=== PATIENT | male | born 1970 | race Caucasian/White ===

== ENCOUNTER 2017-06-29 11:15 | Emergency (ER) | payer OTHER ==
[~2017-06-29] VITALS: Ht 172.7 cm; Wt 70.3 kg
[~2017-06-29 11:15] MED LIST: IBUPROFEN 800800 M1 PO; NORCO 5-325 TA1 EAC1 PO; ROBAXIN500 MG PO
[2017-06-29] MEDS ORDERED: ASPERCREME1 EACH TOP (11:42)
[2017-06-29] MEDS ORDERED: MORPHABOND ER15 MG PO (11:42)
[2017-06-29] MEDS ORDERED: FLEXERIL PO (11:42)
[2017-06-29 14:05] VITALS: BP 145/90
== END 2017-06-29 14:05 | disposition home or self-care (01) ==
LOC: M.ERS 11:15
DX: M79.605 Pain in left leg (principal)

== ENCOUNTER 2020-05-05 16:45 | Inpatient (IN) | payer MEDICARE ==
[~2020-05-05] VITALS: Ht 170.2 cm; Wt 74.0 kg
[~2020-05-05 16:45] MED LIST changes: +ASPERCREME1 EACH TOP; +FLEXERIL PO; +MORPHABOND ER15 MG PO
[2020-05-05 16:49] VITALS: BP 174/109
[2020-05-05] MEDS ORDERED: NEURONTIN300 MG PO (16:54)
[2020-05-05] MEDS ORDERED: LISINOPRIL-HCT1 EAC1 PO (16:54)
[2020-05-05 19:47] LABS: ABSOLUTE BASOPHILS 0.1 thou/uL (0.0-0.2); ABSOLUTE EOSINOPHILS 0.9 thou/uL (0.0-0.7); ABSOLUTE LYMPHOCYTES 3.1 thou/uL (0.8-5.3); ABSOLUTE MONOCYTES 0.7 thou/uL (0.0-1.2); ABSOLUTE NEUTROPHILS 5.6 thou/uL (1.6-8.1); BASOPHILS 1.3 %; EOSINOPHILS 8.9 %; HEMATOCRIT 33.8 % (42.0-52.0); HEMOGLOBIN 11.4 gm/dL (14.0-18.0); LYMPHOCYTES 29.6 %; MCH 26.6 pg (26.0-34.0); MCHC 33.8 g/dL (28.0-37.0); MCV 78.6 fL (80.0-100.0); MPV 7.3 fl. (7.2-11.1); NUCLEATED RBCS 0 /100WBC; PLATELET COUNT* 193 thou/uL (150-400); POLYS 53.2 %; RBC 4.31 mil/uL (4.50-6.00); RDW-CV 14.6 % (10.5-14.5); WBC 10.4 thou/uL (4.0-11.0)
[2020-05-05 20:00] LABS: CREATININE 3.9 mg/dL (0.6-1.3); POTASSIUM 4.3 mmol/L (3.5-5.1)
[2020-05-05 20:05] LABS: ALBUMIN 3.8 g/dL (3.4-5.0); TOTAL BILIRUBIN 0.3 mg/dL (<0.1-1.0); TOTAL PROTEIN 9.1 g/dL (6.4-8.2)
[2020-05-05 20:12] LABS: URINE BILIRUBIN NEGATIVE (Negative); URINE BLOOD TRACE (Negative); URINE CLARITY CLEAR; URINE COLOR YELLOW; URINE GLUCOSE-RANDOM NEGATIVE (Negative); URINE KETONES NEGATIVE (Negative); URINE LEUKOCYTES-REFLEX NEGATIVE (Negative); URINE NITRITE-REFLEX NEGATIVE (Negative); URINE PROTEIN NEGATIVE (Negative); URINE UROBILINOGEN 0.2 E.U./dl (0.2-1.0)
[2020-05-06] VITALS (7 sets, daily range): BP systolic 130–166; BP diastolic 71–97
[2020-05-06 09:33] LABS: CREATININE 3.6 mg/dL (0.6-1.3); POTASSIUM 4.4 mmol/L (3.5-5.1)
[2020-05-06 09:36] LABS: MAGNESIUM 2.2 mg/dL (1.8-2.4); PHOSPHORUS* 3.5 mg/dL (2.5-4.9)
--- NOTE | 2020-05-06 10:49 | EKG ---
[place] [address] ELECTROCARDIOGRAM REPORT Name: CAMELIA FAITH Room: [place] [address] ADM IN ..#: [id number] Admission: 05/05/20 Attend Phys: Jose Lai, Discharge: Date of : 70 Date of Service: 05/05/201957 Report #: [id number] THIS REPORT FOR: //name// [facility] ED Test Date: 2020-05-05 Test Time: 19:58:31 Pat Name: CAMELIA FAITH Department: Room: [facility] Gender: M Clinical Research Administrator: ALBERTO : 1970 Requested By: Sea Zhu Order Number: [id number] MD: Leoncio Le Measurements Intervals [place] Rate: 75 P: 32 FL: 189 QRS: 1 QRSD: 84 T: 6 QT: 373 QTc: 417 Interpretive Statements Sinus rhythm Probable septal infarct, old No previous ECG available for comparison Electronically Signed On 05-06-2020 10:49:23 CAR DUMPER OPERATOR HELPER by Leoncio Le [email or web address] <ELECTRONICALLY SIGNED> By: Leoncio Le MD, [facility] 05/06/20 1049 57 57 Leoncio Le MD, [facility] /EPI
[2020-05-06 11:36] LABS: % SATURATION 22 % (20-39); IRON 55 ug/dL (50-175)
--- NOTE | 2020-05-06 15:03 | 2DMMODE ---
[place] [address] 2 D/M-MODE ECHOCARDIOGRAM Name: MALVIN FAITHREE Perez Room: [place] [address] ADM IN M.R.#: [id number] Admission: 05/05/20 Attend Phys: Jose Lai, Discharge: Date of : 70 Date of Service: 05/06/20 1503 Report #: [id number] THIS REPORT FOR: cc: Sunil Collins MD, Ram MD Liston, Michael J. MD [facility] ~ APPROVED REPORT Study performed: 05/06/2020 14:14:52 EXAM: Comprehensive 2D, Doppler, and color-flow Echocardiogram Patient Location: Bedside BSA: 1.91 HR: 60 bpm BP: 144/87 mmHg Other Information Study Quality: Adequate Indications Chest Pain 2D Dimensions IVSd: 10.07 (7-11mm) LVOT Diam: 19.56 (18-24mm) LVDd: 42.58 mm PWd: 9.97 (7-11mm) Ascending Ao: 32.54 (22-36mm) LVDs: 31.08 (25-40mm) Aortic Root: 33.00 mm Volumes Left Atrial Volume (Systole) LA ESV Index: 16.20 mL/m2 Aortic Valve AoV Peak Jonah.: 1.19 m/s AO Peak Gr.: 5.62 mmHg LVOT Max P.07 mmHg AO Mean Gr.: 3.18 mmHg LVOT Mean P.89 mmHg LVOT Max V: 1.01 m/s AO V2 VTI: 21.53 cm LVOT Mean V: 0.62 m/s WILEY (VTI): 2.60 cm2 LVOT V1 VTI: 18.61 cm Mitral Valve E/A Ratio: 0.81 [place] [address] 2 D/M-MODE ECHOCARDIOGRAM Name: CAMELIA FAITH Room: [address] IN .R.#: [id number] Admission: 05/05/20 Attend Phys: Jose Lai, Discharge: Date of : 70 Date of Service: 05/06/20 1503 Report #: [id number] MV Decel. Time: 290.07 ms MV E Max Jonah.: 0.64 m/s MV PHT: 84.12 ms MVA (PHT): 2.62 cm2 TDI E/Lateral E': 4.00 E/Medial E': 8.00 Medial E' Jonah.: 0.08 m/s Lateral E' Jonah.: 0.16 m/s Pulmonary Valve PV Peak Jonah.: 1.13 m/s PV Peak Gr.: 5.14 mmHg Tricuspid Valve RAP Estimate: 5.00 mmHg TR Peak Gr.: 18.93 mmHg RVSP: 23.93 mmHg PA Pressure: 23.93 mmHg Left Ventricle The left ventricle is normal size. There is normal LV segmental wall motion. There is normal left ventricular wall thickness. Left ventricular systolic function is normal. LVEF is 60-65%. Grade I - abnormal relaxation pattern. Right Ventricle The right ventricle is normal size. The right ventricular systolic function is normal. Atria The left atrium size is normal. The right atrium size is normal. Aortic Valve The aortic valve is normal in structure. No aortic regurgitation is present. There is no aortic valvular stenosis. Mitral Valve The mitral valve is normal in structure. There is no mitral valve regurgitation noted. No evidence of mitral valve stenosis. Tricuspid Valve The tricuspid valve is normal in structure. Trace tricuspid regurgitation. Pulmonic Valve The pulmonary valve is normal in structure. [place] [address] 2 D/M-MODE ECHOCARDIOGRAM Name: CAMELIA FAITH Room: [address] IN [facility]#: [id number] Admission: 05/05/20 Attend Phys: Jose Lai, Discharge: Date of : 70 Date of Service: 05/06/20 1503 Report #: [id number] valvular regurgitation. Great Vessels The aortic root is normal in size. IVC is normal in size and collapses >50% with inspiration. Pericardium There is no pericardial effusion. <Conclusion> The left ventricle is normal size. There is normal left ventricular wall thickness. Left ventricular systolic function is normal. LVEF is 60-65%. Grade I - abnormal relaxation pattern. Trace tricuspid regurgitation. IVC is normal in size and collapses >50% with inspiration. <ELECTRONICALLY SIGNED> By: Raman Snyder MD, FACC 05/06/20 1503 1503 1503 Raman Snyder MD, FACC /INF
[2020-05-07 00:30] VITALS: BP 138/77
[2020-05-07 04:38] LABS: HEMATOCRIT 32.1 % (42.0-52.0); HEMOGLOBIN 10.7 gm/dL (14.0-18.0); MCH 26.5 pg (26.0-34.0); MCHC 33.5 g/dL (28.0-37.0); MCV 79.2 fL (80.0-100.0); MPV 7.5 fl. (7.2-11.1); RBC 4.05 mil/uL (4.50-6.00); RDW-CV 14.9 % (10.5-14.5); WBC 8.8 thou/uL (4.0-11.0)
[2020-05-07 05:34] LABS: CALCIUM 8.5 mg/dL (8.5-10.1); CREATININE 3.9 mg/dL (0.6-1.3); MAGNESIUM 2.4 mg/dL (1.8-2.4); POTASSIUM 4.8 mmol/L (3.5-5.1)
[2020-05-07 09:34] VITALS: BP 166/100
[2020-05-07 11:13] LABS: URINE POTASSIUM-RANDOM 24.6 mmol/L
[2020-05-07 20:00] VITALS: BP 162/99
[2020-05-07 22:36] LABS: SMEAR FOR EOSINOPHILS No Eosinophils Seen
[2020-05-08] VITALS: BP 161/96
[2020-05-08 03:06] LABS: HEPATITIS B SURFACE AG Negative (Negative)
[2020-05-08 04:41] LABS: CALCIUM 8.9 mg/dL (8.5-10.1); CREATININE 3.5 mg/dL (0.6-1.3); HEMATOCRIT 33.5 % (42.0-52.0); HEMOGLOBIN 11.3 gm/dL (14.0-18.0); MCH 26.1 pg (26.0-34.0); MCHC 33.8 g/dL (28.0-37.0); MCV 77.3 fL (80.0-100.0); MPV 7.7 fl. (7.2-11.1); POTASSIUM 4.3 mmol/L (3.5-5.1); RBC 4.33 mil/uL (4.50-6.00); WBC 12.6 thou/uL (4.0-11.0)
[2020-05-08 06:49] LABS: ALBUMIN 3.9 g/dL (3.4-5.0); CALCIUM 9.1 mg/dL (8.5-10.1); CREATININE 3.4 mg/dL (0.6-1.3); POTASSIUM 4.3 mmol/L (3.5-5.1); TOTAL BILIRUBIN 0.3 mg/dL (<0.1-1.0); TOTAL PROTEIN 8.5 g/dL (6.4-8.2)
[2020-05-08 08:00] VITALS: BP 177/103
[2020-05-08] MEDS ORDERED: NORVASC10 MG PO (09:08)
[2020-05-08] MEDS ORDERED: CATAPRES0.1 MG PO (09:08)
[2020-05-08 20:00] VITALS: BP 175/100
[2020-05-09 04:00] VITALS: BP 167/103
[2020-05-09 04:22] LABS: ALBUMIN 3.7 g/dL (3.4-5.0); CALCIUM 9.2 mg/dL (8.5-10.1); CREATININE 3.3 mg/dL (0.6-1.3); TOTAL BILIRUBIN 0.5 mg/dL (<0.1-1.0); TOTAL PROTEIN 8.3 g/dL (6.4-8.2)
[2020-05-09 08:00] VITALS: BP 151/98
--- NOTE | 2020-05-09 09:43 | CON ---
[address] [address] CONSULTATION Name: CAMELIA FAITH Ana Room: [address] IN .R.#: [id number] Admission: 05/05/20 Attend Phys: Jose Lai MD Discharge: Date of : 70 Report #: [id number] THIS REPORT FOR: //name// cc: Sunil Collins MD, Ram MD ~ DATE OF SERVICE: 05/08/2020 REQUESTING PHYSICIAN: Jose Lai MD REASON FOR CONSULTATION: Acute kidney injury. HISTORY OF PRESENT ILLNESS: The patient is a 49-year-old white male with medical history significant for hypertension. According to the patient his hypertension is well controlled. The patient presented to the hospital with complaints of chest pain. He does not have a history of coronary artery disease. It was found that his creatinine was 3.9 with a GFR of 17. According to the patient, his blood pressure always controlled well and again according to the patient his renal functions a year ago were normal. The patient was on IRVIN inhibitor prior to admission. We did a renal ultrasound here that revealed slightly smaller right kidney with a solitary left renal artery, which indicating probable a moderate left renal artery stenosis. SOCIAL HISTORY: Positive for marijuana use. FAMILY HISTORY: Negative for renal disease. REVIEW OF SYSTEMS: No complaints now and he wants to go home. PHYSICAL EXAMINATION: GENERAL: He is awake, alert, oriented. VITAL SIGNS: Blood pressure 177/103, heart rate 86, afebrile. HEENT: Pupils are round. NECK: Supple. LUNGS: Clear. CARDIOVASCULAR: Regular rate. EXTREMITIES: Lower extremities, right leg with some wounds, which is chronic wound. LABORATORY DATA: His urinalysis was unremarkable. His serum sodium 128, potassium 4.3, chloride 94, carbon dioxide 22, BUN 50, creatinine 3.5. Hemoglobin is 11.3. ASSESSMENT: 1. Acute kidney injury. Etiology is unclear[place] [address] CONSULTATION Name: CAMELIA FAITH Room: [address] IN [facility]#: [id number] Admission: 05/05/20 Attend Phys: Jose Lai MD Discharge: Date of : 70 Report #: [id number] 2. Hypertension, uncontrolled. 3. Chronic right leg infection. PLAN: Advised the patient to stay in the hospital and wait for the results of the serology. In light of the fact that according to the patient his blood pressure was controlled well that is all acute problems, although I cannot independently confirm it. The patient very strongly wants to go home and I explained to him that I cannot be responsible for his renal function if he just goes home, he understood that. Discussed the case with Dr. Lai. If the patient goes home, he will need to follow up with different nephrologists. I was thinking that I cannot follow with the patient who does not trust my judgment. <ELECTRONICALLY SIGNED> By: Vicetne Arciniega MD 05/09/20 0943 0916 [id number] Arciniega MD /[facility]
[2020-05-09 10:28] LABS: INR 1.4; PROTIME 14.2 Seconds (9.20-11.50)
[2020-05-09 16:01] VITALS: BP 142/82
[2020-05-09 18:06] LABS: ANA INTERPRETATION Negative (())
[2020-05-09 20:00] VITALS: BP 139/87
[2020-05-10] VITALS: BP 128/83
[2020-05-10 05:22] LABS: HEMATOCRIT 31.8 % (42.0-52.0); HEMOGLOBIN 10.9 gm/dL (14.0-18.0); MCH 26.5 pg (26.0-34.0); MCHC 34.3 g/dL (28.0-37.0); MCV 77.4 fL (80.0-100.0); MPV 7.6 fl. (7.2-11.1); NUCLEATED RBCS 0 /100WBC; PLATELET COUNT* 306 thou/uL (150-400); RBC 4.11 mil/uL (4.50-6.00); RDW-CV 14.8 % (10.5-14.5); WBC 8.4 thou/uL (4.0-11.0)
[2020-05-10 05:41] LABS: INR 1.2; PROTIME 12.4 Seconds (9.20-11.50)
[2020-05-10 05:45] LABS: ALBUMIN 3.5 g/dL (3.4-5.0); CALCIUM 8.6 mg/dL (8.5-10.1); CREATININE 3.7 mg/dL (0.6-1.3); TOTAL BILIRUBIN 0.2 mg/dL (<0.1-1.0); TOTAL PROTEIN 7.8 g/dL (6.4-8.2)
[2020-05-10 06:14] LABS: ABSOLUTE EOSINOPHILS 0.3 thou/uL (0.0-0.7); ABSOLUTE LYMPHOCYTES 2.7 thou/uL (0.8-5.3); ABSOLUTE MONOCYTES 0.9 thou/uL (0.0-1.2); ABSOLUTE NEUTROPHILS 4.5 thou/uL (1.6-8.1); ANISOCYTOSIS 1+; PLATELET ESTIMATE ADEQUATE; POIKILOCYTOSIS 1+
[2020-05-10 11:56] VITALS: BP 128/83
[2020-05-10 12:06] LABS: ANA INTERPRETATION Positive (Negative)
[2020-05-10 13:09] VITALS: BP 128/83
[2020-05-10 17:06] LABS: GLOBULIN TOTAL 3.3 g/dL (2.2-3.9); M-SPIKE Not Observed g/dL (Not Observed)
[2020-05-10 19:07] LABS: URINE PROTEIN (MG/DL) 16.1 mg/dL (Not Estab.)
[2020-05-11 09:07] LABS: GLOMERULR BASEM MEMBRN AB 7 units (0-20)
== END 2020-05-10 13:50 | disposition home or self-care (01) | DRG 640 ==
LOC: M.ERS 16:45 → M.TBA-ER 20:50 → M.2W 05-06 15:24
PROVIDERS: Emergency Medicine Emergency Medical Services; Family Medicine; Internal Medicine Nephrology; ADMIT Internal Medicine; ATTEND Internal Medicine
DX: E87.1 Hypo-osmolality and hyponatremia (principal); N17.0 Acute kidney failure with tubular necrosis; N18.4 Chronic kidney disease, stage 4 (severe); D50.9 Iron deficiency anemia, unspecified; I12.9 Hypertensive chronic kidney disease with stage 1 through stage 4 chronic kidney disease, or unspecified chronic kidney disease; R07.89 Other chest pain; G89.29 Other chronic pain; T50.995A Adverse effect of other drugs, medicaments and biological substances, initial encounter; S80.861A Insect bite (nonvenomous), right lower leg, initial encounter; F12.20 Cannabis dependence, uncomplicated; W57.XXXA Bitten or stung by nonvenomous insect and other nonvenomous arthropods, initial encounter; Z20.828 Contact with and (suspected) exposure to other viral communicable diseases; Y93.89 Activity, other specified; Y99.8 Other external cause status; Y92.89 Other specified places as the place of occurrence of the external cause; Z88.5 Allergy status to narcotic agent; Z79.899 Other long term (current) drug therapy

== ENCOUNTER → 2020-05-12 | Outpatient (CLI) | payer MEDICARE ==
--- NOTE | 2020-05-10 15:00 | NUR ---
pt care provided from 0700 until 1350. unable to complete renal biopsy related to aspirin intake in past 24 hours. pt to have this done on outpatient basis. pt has been alert, oriented x 4. skin warm and dry to touch. wound left calf has dressing which is dry and intact. pt has no c/o pain or distress related to this wound. at 1045 pt at nurses station. pt speaking with raised voice. pt then returned to his room and verbalizes the following. "You took my water and chips away without asking my permission" "I was not allowed to get myself water. I want every staff member here to do a line up so I can identify the nurse who would not let me get water" "If necessary I will go to joint [facility] about this". I explained to patient that he was npo for potential renal biopsy and that was rationale for moving food/fluid items from his bedside table. Pt verbalizes understanding of this explaination and now speaks in a calm voice. Pt no longer insists on staff lineup to identify staff member who would not get him water. At 1330 dismissal instructions reviewed with patient. Pt instructed to contact out patient department to schedule a renal biopsy. Pt instructed that he will be given instructions on any medications which may need to be held prior to renal biopsy. Pt also instructed he is to contact his primary care provider and dr grubbs (design studio consultant) to schedule follow up visits. Pt verbalizes understanding of above. Pt to front exit via wheelchair. Pt refuses to wait for family to arrive prior to be taken to exit. Explained that is is a safety mechanism not to leave patients unattended outside while they wait for their rides. Pt verbalies understanding and takes responsibility for his safety while unattended. I notified Pedro RN/charge nurse of above. At time of dismissal from 201 pt remains alert, oriented and pain free. Skin warm and dry to touch. Taken to bench immediately outside main entrance. Pt stable at this time
[~2020-05-12] MED LIST changes: +CATAPRES0.1 MG PO; +LISINOPRIL-HCT1 EAC1 PO; +NEURONTIN300 MG PO; +NORVASC10 MG PO
== END ==
LOC: M.WC 08:00
PROVIDERS: ATTEND Surgery
DX: L97.212 Non-pressure chronic ulcer of right calf with fat layer exposed (principal); T63.331A Toxic effect of venom of brown recluse spider, accidental (unintentional), initial encounter; N17.0 Acute kidney failure with tubular necrosis; I10 Essential (primary) hypertension; G89.29 Other chronic pain; F11.20 Opioid dependence, uncomplicated; Z22.322 Carrier or suspected carrier of Methicillin resistant Staphylococcus aureus; Z87.891 Personal history of nicotine dependence; Y92.89 Other specified places as the place of occurrence of the external cause

== ENCOUNTER → 2020-05-19 | Outpatient (CLI) | payer MEDICARE | LOC: M.WC 08:18 | PROVIDERS: ATTEND Surgery | DX: L97.212 Non-pressure chronic ulcer of right calf with fat layer exposed (principal); S81.851D Open bite, right lower leg, subsequent encounter; N17.0 Acute kidney failure with tubular necrosis; I10 Essential (primary) hypertension; F11.20 Opioid dependence, uncomplicated; Z87.891 Personal history of nicotine dependence; Z22.322 Carrier or suspected carrier of Methicillin resistant Staphylococcus aureus; W57.XXXD Bitten or stung by nonvenomous insect and other nonvenomous arthropods, subsequent encounter ==

== ENCOUNTER → 2020-05-21 | Outpatient (CLI) | payer MEDICARE ==
[~2020-05-21] VITALS: Ht 172.7 cm; Wt 74.8 kg
[2020-05-21] VITALS (11 sets, daily range): BP systolic 118–136; BP diastolic 72–87
[2020-05-21 08:29] LABS: HEMATOCRIT 32.4 % (42.0-52.0); HEMOGLOBIN 10.8 gm/dL (14.0-18.0); MCH 25.9 pg (26.0-34.0); MCHC 33.4 g/dL (28.0-37.0); MCV 77.8 fL (80.0-100.0); MPV 6.7 fl. (7.2-11.1); RBC 4.17 mil/uL (4.50-6.00); RDW-CV 14.8 % (10.5-14.5); WBC 13.5 thou/uL (4.0-11.0)
[2020-05-21 08:39] LABS: INR 1.3; PROTIME 13.4 Seconds (9.20-11.50)
[2020-05-21 08:40] LABS: CALCIUM 8.7 mg/dL (8.5-10.1); CREATININE 3.3 mg/dL (0.6-1.3)
== END | disposition home or self-care (01) ==
LOC: M.ULTRA 05-17 08:30
PROVIDERS: Radiology Diagnostic Radiology; ATTEND Internal Medicine
DX: N28.9 Disorder of kidney and ureter, unspecified (principal); I10 Essential (primary) hypertension; Z87.891 Personal history of nicotine dependence; Z79.899 Other long term (current) drug therapy; Z98.890 Other specified postprocedural states

== ENCOUNTER → 2020-05-26 | Outpatient (CLI) | payer MEDICARE | LOC: M.WC 07:31 | PROVIDERS: ATTEND Surgery | DX: T63.301D Toxic effect of unspecified spider venom, accidental (unintentional), subsequent encounter (principal); L97.212 Non-pressure chronic ulcer of right calf with fat layer exposed; N17.0 Acute kidney failure with tubular necrosis; I10 Essential (primary) hypertension; G89.29 Other chronic pain; Z22.322 Carrier or suspected carrier of Methicillin resistant Staphylococcus aureus; Z87.891 Personal history of nicotine dependence ==

== ENCOUNTER → 2020-06-02 | Outpatient (CLI) | payer MEDICARE | LOC: M.WC 09:00 | PROVIDERS: ATTEND Surgery | DX: L97.212 Non-pressure chronic ulcer of right calf with fat layer exposed (principal); T63.301D Toxic effect of unspecified spider venom, accidental (unintentional), subsequent encounter; L84 Corns and callosities; G89.29 Other chronic pain; N17.0 Acute kidney failure with tubular necrosis; I10 Essential (primary) hypertension; F11.20 Opioid dependence, uncomplicated; Z87.891 Personal history of nicotine dependence; Z22.322 Carrier or suspected carrier of Methicillin resistant Staphylococcus aureus ==

== ENCOUNTER → 2020-06-09 | Outpatient (CLI) | payer MEDICARE | LOC: M.WC 09:00 | PROVIDERS: ATTEND Surgery | DX: L97.212 Non-pressure chronic ulcer of right calf with fat layer exposed (principal); T63.331D Toxic effect of venom of brown recluse spider, accidental (unintentional), subsequent encounter; L84 Corns and callosities; N17.0 Acute kidney failure with tubular necrosis; G89.29 Other chronic pain; I10 Essential (primary) hypertension; F12.20 Cannabis dependence, uncomplicated; Z22.322 Carrier or suspected carrier of Methicillin resistant Staphylococcus aureus; Z87.891 Personal history of nicotine dependence ==

== ENCOUNTER → 2020-06-16 | Outpatient (CLI) | payer MEDICARE | LOC: M.WC 08:51 | PROVIDERS: ATTEND Surgery | DX: L97.212 Non-pressure chronic ulcer of right calf with fat layer exposed (principal); S80.861D Insect bite (nonvenomous), right lower leg, subsequent encounter; N17.0 Acute kidney failure with tubular necrosis; G89.29 Other chronic pain; I10 Essential (primary) hypertension; F12.20 Cannabis dependence, uncomplicated; Z87.891 Personal history of nicotine dependence; Z22.322 Carrier or suspected carrier of Methicillin resistant Staphylococcus aureus ==

== ENCOUNTER → 2020-06-23 | Outpatient (CLI) | payer MEDICARE | LOC: M.WC 08:41 | PROVIDERS: ATTEND Surgery | DX: L97.212 Non-pressure chronic ulcer of right calf with fat layer exposed (principal); T63.331D Toxic effect of venom of brown recluse spider, accidental (unintentional), subsequent encounter; N17.0 Acute kidney failure with tubular necrosis; G89.29 Other chronic pain; I10 Essential (primary) hypertension; F12.20 Cannabis dependence, uncomplicated; F11.20 Opioid dependence, uncomplicated; Z87.891 Personal history of nicotine dependence; Z22.322 Carrier or suspected carrier of Methicillin resistant Staphylococcus aureus ==

== ENCOUNTER → 2020-06-30 | Outpatient (CLI) | payer MEDICARE | LOC: M.WC 08:41 | PROVIDERS: ATTEND Surgery | DX: L97.212 Non-pressure chronic ulcer of right calf with fat layer exposed (principal); T63.331D Toxic effect of venom of brown recluse spider, accidental (unintentional), subsequent encounter; N17.0 Acute kidney failure with tubular necrosis; G89.29 Other chronic pain; I10 Essential (primary) hypertension; F12.20 Cannabis dependence, uncomplicated; F11.20 Opioid dependence, uncomplicated; Z87.891 Personal history of nicotine dependence; Z22.322 Carrier or suspected carrier of Methicillin resistant Staphylococcus aureus ==

== ENCOUNTER → 2020-07-07 | Outpatient (CLI) | payer MEDICARE | LOC: M.WC 08:39 | PROVIDERS: ATTEND Surgery | DX: L97.212 Non-pressure chronic ulcer of right calf with fat layer exposed (principal); T63.331D Toxic effect of venom of brown recluse spider, accidental (unintentional), subsequent encounter; N17.0 Acute kidney failure with tubular necrosis; G89.29 Other chronic pain; I10 Essential (primary) hypertension; F12.20 Cannabis dependence, uncomplicated; F11.20 Opioid dependence, uncomplicated; Z87.891 Personal history of nicotine dependence; Z22.322 Carrier or suspected carrier of Methicillin resistant Staphylococcus aureus ==

== ENCOUNTER → 2020-07-14 | Outpatient (CLI) | payer MEDICARE | LOC: M.WC 08:07 | PROVIDERS: ATTEND Surgery | DX: L97.212 Non-pressure chronic ulcer of right calf with fat layer exposed (principal); T63.331D Toxic effect of venom of brown recluse spider, accidental (unintentional), subsequent encounter; N17.0 Acute kidney failure with tubular necrosis; G89.29 Other chronic pain; I10 Essential (primary) hypertension; F12.20 Cannabis dependence, uncomplicated; F11.20 Opioid dependence, uncomplicated; Z87.891 Personal history of nicotine dependence; Z22.322 Carrier or suspected carrier of Methicillin resistant Staphylococcus aureus ==

== ENCOUNTER → 2020-07-14 | Outpatient (CLI) | payer MEDICARE ==
[2020-07-14 09:59] LABS: ABSOLUTE BASOPHILS 0.1 thou/uL (0.0-0.2); ABSOLUTE EOSINOPHILS 0.6 thou/uL (0.0-0.7); ABSOLUTE LYMPHOCYTES 2.1 thou/uL (0.8-5.3); ABSOLUTE MONOCYTES 0.5 thou/uL (0.0-1.2); ABSOLUTE NEUTROPHILS 12.8 thou/uL (1.6-8.1); BASOPHILS 0.9 %; EOSINOPHILS 3.5 %; HEMATOCRIT 32.3 % (42.0-52.0); HEMOGLOBIN 10.7 gm/dL (14.0-18.0); MCH 25.6 pg (26.0-34.0); MCHC 33.3 g/dL (28.0-37.0); MCV 76.9 fL (80.0-100.0); MONOCYTES 3.3 %; MPV 7.1 fl. (7.2-11.1); NUCLEATED RBCS 0 /100WBC; PLATELET COUNT* 181 thou/uL (150-400); POLYS 79.3 %; RDW-CV 14.4 % (10.5-14.5); WBC 16.2 thou/uL (4.0-11.0)
[2020-07-14 10:26] LABS: ALBUMIN 3.9 g/dL (3.4-5.0); CREATININE 4.1 mg/dL (0.6-1.3); PHOSPHORUS* 3.6 mg/dL (2.5-4.9); POTASSIUM 3.5 mmol/L (3.5-5.1)
[2020-07-14 10:36] LABS: CREATININE 4.4 mg/dL (0.6-1.3); PHOSPHORUS* 3.6 mg/dL (2.5-4.9)
[2020-07-14 10:49] LABS: % SATURATION 7 % (20-39); IRON 20 ug/dL (50-175)
== END ==
LOC: M.LAB 09:35
PROVIDERS: ATTEND Internal Medicine Nephrology
DX: N18.4 Chronic kidney disease, stage 4 (severe) (principal)

== ENCOUNTER 2021-02-03 01:48 | Inpatient (IN) | payer MEDICARE ==
[~2021-02-03] VITALS: Ht 177.8 cm; Wt 69.4 kg
[2021-02-03] VITALS (32 sets, daily range): BP systolic 113–186; BP diastolic 66–129
--- NOTE | ~2021-02-03 | EMS ---
[address] [address] EMS Patient Care Report Name: CAMELIA FAITH Room: [facility]#: [id number] Admission: 02/03/21 Attend Phys: Discharge: Date of : 70 Report #: [id number] THIS REPORT FOR: //name// Report Transmitted: 02/03/2021 01:22 EMS Care Summary [facility] Incident [id number] @ 02/03/2021 01:03 Incident Location [address] [place] [address] Patient CAMELIA FAITH Male, 50 Years 1970 Patient Address [address] [place] [address] Patient History Kidney/Renal Failure, Patient Allergies No known allergies, Patient Medications Iron, Aspirin, Chief Complaint Acute Respiratory Distress Disposition Transported No Lights/[place] Reason Breathing Problem Transported To [facility] Narrative 50 y/o male pt found sitting upright on living room couch at home. Pt was alert and oriented upon EMS arrival and complains of increased difficulty breathing. Pt states that it seems to come in waves where he has a very difficulty time, and then it gets better. Pt was able to speak in complete sentences upon our [address] [address] EMS Patient Care Report Name: CAMELIA FAITH Room: [facility]#: [id number] Admission: 02/03/21 Attend Phys: Discharge: Date of : 70 Report #: [id number] arrival. Initial vitals were assessed on scene. Pt was moved to [facility] and placed in ambulance. Once in ambulance, he was placed on supplemental oxygen via NC and placed on nuclear monitoring technician showing sinus tachycardia. Pt denies any chest pain at this time. Lung sounds were clear, equal and bilateral. Pt states that he has been having issues with this for about a month and has been seeing a Operating Room Nurse but has not received any diagnoses or answers yet and is still undergoing testing. During transport, a 20G IV was established in the RAC with a saline lock. Pt was continuously monitored and reassessed with no further complaints or changes in condition. Care was transferred to RN at [facility]. Initial Vitals @01:22P: 105,R: 18,BP: 160/80,GCS: 15,SpO2: 88,Revised Trauma: 12, @01:31P: 105,R: 18,BP: 169/110,GCS: 15,SpO2: 92,Revised Trauma: 12,SC Suspected: false @01:40P: 114,R: 18,BP: 164/100,GCS: 15,Glucose: 155,SpO2: 92,Revised Trauma: 12,SC Suspected: false Impression Acute Respiratory Distress (Dyspnea) Procedures @01:25Oxygen FlowRate: 4 Device: Nasal Cannula (NC) Response: ImprovedSucceeded Timeline 01:03,Call Received 01:03,Dispatched 01:06,En Route 01:13,Initial Responder On Scene 01:13,On Scene 01:14,At Patient 01:22,BP: 160/80 M,PULSE: 105,RR: 18 R,SPO2: 88 Ox,ETCO2: ,BG: ,PAIN: ,GCS: 15, 01:25,Depart Scene 01:25,Oxygen FlowRate: 4 Device: Nasal Cannula (NC) Response: ImprovedSucceeded, 01:31,BP: 169/110 M,PULSE: 105,RR: 18 R,SPO2: 92 Ox,ETCO2: ,BG: ,PAIN: ,GCS: 15, 01:40,BP: 164/100 M,PULSE: 114,RR: 18 R,SPO2: 92 Ox,ETCO2: ,B,PAIN: ,GCS: 15, 01:44,At Destination 01:46,Transfer Patient 02:09,Call Closed 02:09,In District Disclaimer v1.1 Copyright 2020 [employer], [place] [address] EMS Patient Care Report Name: FAITH,CAMELIA J Room: [facility]#: [id number] Admission: 02/03/21 Attend Phys: Discharge: Date of : 70 Report #: [id number] This EMS Care Summary contains data elements from the applicable legal record (which may be displayed differently). It is designed to provide pertinent information for the following purposes: continuity of care, clinical quality, and state data reporting. The complete legal record is available to ED staff and administrators of the receiving hospital in [facility]'s Patient Tracker. All data is provided "as is."
[2021-02-03] MEDS ORDERED: PREDNISONE 20 M20 MG PO (02:13)
[2021-02-03 02:16] LABS: HEMATOCRIT 25.7 % (42.0-52.0); HEMOGLOBIN 7.9 gm/dL (14.0-18.0); MCH 22.8 pg (26.0-34.0); MCHC 30.7 g/dL (28.0-37.0); MCV 74.2 fL (80.0-100.0); MPV 6.4 fl. (7.2-11.1); NUCLEATED RBCS 0 /100WBC; PLATELET COUNT* 518 thou/uL (150-400); RBC 3.46 mil/uL (4.50-6.00); RDW-CV 18.9 % (10.5-14.5); WBC 22.5 thou/uL (4.0-11.0)
[2021-02-03 02:26] LABS: ANION GAP 16 mmol/L (7-16); BUN 69 mg/dL (7-18); CALCIUM 7.8 mg/dL (8.5-10.1); CHLORIDE 104 mmol/L (98-107); CO2 18 mmol/L (21-32); CREATININE 3.3 mg/dL (0.6-1.3); GLUCOSE 169 mg/dL (70-99); POTASSIUM 3.4 mmol/L (3.5-5.1); SODIUM 138 mmol/L (136-145)
[2021-02-03 02:39] LABS: ALKALINE PHOSPHATASE 84 U/L (46-116); MAGNESIUM 2.4 mg/dL (1.8-2.4); NT-PRO BRAIN NAT PEPTIDE > 35000 pg/mL (<300); SGOT 21 U/L (15-37); SGPT 29 U/L (30-65); TOTAL BILIRUBIN 0.7 mg/dL (<0.1-1.0); TOTAL PROTEIN 6.6 g/dL (6.4-8.2)
[2021-02-03 03:05] LABS: BE -8.3 mmol/L (-2 to +3); PCO2 23.7 mmHg (35.0-45.0); PO2 63.8 mmHg (75.0-100.0); pH 7.409 (7.340-7.450)
[2021-02-03 04:04] LABS: ABSOLUTE LYMPHOCYTES 4.1 thou/uL (0.8-5.3); ABSOLUTE MONOCYTES 1.8 thou/uL (0.0-1.2); ABSOLUTE NEUTROPHILS 16.7 thou/uL (1.6-8.1); ANISOCYTOSIS 2+; ATYPICAL LYMPHS 1 %; HYPOCHROMASIA 2+; POIKILOCYTOSIS 2+; POLYCHROMASIA 1+
[2021-02-03 04:05] LABS: MICROCYTES 1+; OVALOCYTES 1+; SCHISTOCYTES 2+
[2021-02-03] MEDS ORDERED: NORVASC10 MG PO (06:52)
[2021-02-03] MEDS ORDERED: CLONIDINE HCL0.1 MG PO (06:52)
[2021-02-03] MEDS ORDERED: HYDRALAZINE 5050 MG PO (06:53)
[2021-02-03] MEDS ORDERED: TRAMADOL 50 MG50 MG PO (06:54)
[2021-02-03] MEDS ORDERED: ASPIRIN EC81 M1 PO (06:55)
[2021-02-03] MEDS ORDERED: IRON PO (06:57)
[2021-02-03] MEDS ORDERED: STOOL SOFTENER100 M1 PO (06:57)
[2021-02-03 10:03] LABS: AMP/METHAMP Negative (Negative); BARBITURATES Negative (Negative); BENZODIAZEPINES Negative (Negative); COCAINE Negative (Negative); METHADONE Negative (Negative); OPIATES Negative (Negative); PCP Negative (Negative); THC POSITIVE (Negative)
--- NOTE | 2021-02-03 10:30 | NUR ---
Met with patient at bedside to introduce role of CM. Patient admitted for CHF, pulm edema, elevated trop and resp failure. Patient lives at home in a house with his , son, DIL, grandson and cousin. There are stairs inside the home but the patient's bedroom is on the main level so patient does not need to use stairs. Patient uses a cane for mobility and an electric wheelchair for long distances. Patient can drive but does all the driving. No hx of O2, bipap/cpap, HH, BHS, dialysis or infusion therapy. Hx of rehab in 2015/2016. Patient does have a LUE fistula that was placed in August of this year but per patient the fistula will not be used for many years, per his imaging account manager (Dr. Tony Macedo). Per patient he does not want to see any imaging account manager at [facility]. PCP is Dr. Serrano. Patient is currently on 5L NC. Patient feels that he is safe to return home at discharge. CM to continue to follow
--- NOTE | 2021-02-03 11:44 | EKG ---
[place] [address] ELECTROCARDIOGRAM REPORT Name: FAITHCAMELIA VENTURA Room: [address] ADM IN M.R.#: [id number] Admission: 02/03/21 Attend Phys: Coy Carranza, Discharge: Date of : 70 Date of Service: 02/03/21 0205 Report #: [id number] THIS REPORT FOR: //name// [facility] ED Test Date: 2021-02-03 Test Time: 02:05:41 Pat Name: CAMELIA FAITH Department: Room: [facility] Gender: M Pattern Weaver: : 1970 Requested By: Myah Klein Order Number: [id number] MD: Víctor Guillen Measurements Intervals [place] Rate: 113 P: 69 NH: 167 QRS: 45 QRSD: 82 T: 148 QT: 347 QTc: 476 Interpretive Statements Sinus tachycardia Aberrant conduction of SV complex(es) Probable LVH with secondary repol abnrm Anterior ST elevation, probably due to LVH Borderline prolonged QT interval Artifact in lead(s) I,II,III,aVR,V4 Compared to ECG 05/05/2020 19:58:31 Aberrant conduction of supraventricular beat(s) now present Left ventricular hypertrophy now present ST (T wave) deviation now present Sinus rhythm no longer present Myocardial infarct finding no longer present Electronically Signed On 02-03-2021 11:44:27 CDT by Víctor Guillen [email or web address] <ELECTRONICALLY SIGNED> By: Nita Guillen MD, [facility] 02/03/21 1144 4 4 Nita Guillen MD, [facility] /EPI
[2021-02-03 15:03] LABS: CALCIUM 7.7 mg/dL (8.5-10.1); CREATININE 3.4 mg/dL (0.6-1.3); POTASSIUM 3.3 mmol/L (3.5-5.1)
--- NOTE | 2021-02-03 16:05 | 2DMMODE ---
[place] [address] 2 D/M-MODE ECHOCARDIOGRAM Name: FAITHCAMELIA J Room: [facility] IN .R.#: [id number] Admission: 02/03/21 Attend Phys: Coy Carranza, Discharge: Date of : 70 Date of Service: 02/03/21 1605 Report #: [id number] THIS REPORT FOR: cc: Norm Serrano Adam J DO Biggs, F. Douglas MD [facility] ~ APPROVED REPORT Study performed: 02/03/2021 10:34:43 EXAM: Comprehensive 2D, Doppler, and color-flow Echocardiogram Patient Location: In-Patient Room #: 007 Status: routine BSA: 1.86 HR: 97 bpm BP: 156/85 mmHg Rhythm: NSR Other Information Study Quality: Good Indications Congestive Heart Failure 2D Dimensions IVSd: 10.40 (7-11mm) LVOT Diam: 19.40 (18-24mm) LVDd: 56.20 mm PWd: 11.41 (7-11mm) Ascending Ao: 30.92 (22-36mm) LVDs: 46.43 (25-40mm) Aortic Root: 34.09 mm Volumes Left Atrial Volume (Systole) LA ESV Index: 41.00 mL/m2 Aortic Valve AoV Peak Jonah.: 1.61 m/s AO Peak Gr.: 10.41 mmHg LVOT Max P.59 mmHg AO Mean Gr.: 5.20 mmHg LVOT Mean P.49 mmHg LVOT Max V: 1.18 m/s AO V2 VTI: 25.48 cm LVOT Mean V: 0.72 m/s WILEY (VTI): 2.53 cm2 LVOT V1 VTI: 21.84 [place] [address] 2 D/M-MODE ECHOCARDIOGRAM Name: CAMELIA FAITH Room: [address] IN .R.#: [id number] Admission: 02/03/21 Attend Phys: Coy Carranza, Discharge: Date of : 70 Date of Service: 02/03/21 1605 Report #: [id number] Mitral Valve E/A Ratio: 1.64 MV Decel. Time: 141.15 ms MV E Max Jonah.: 1.29 m/s MV PHT: 40.93 ms MVA (PHT): 5.37 cm2 TDI E/Lateral E': 14.33 E/Medial E': 18.43 Medial E' Jonah.: 0.07 m/s Lateral E' Jonah.: 0.09 m/s Pulmonary Valve PV Peak Jonah.: 1.37 m/s PV Peak Gr.: 7.53 mmHg Tricuspid Valve RAP Estimate: 5.00 mmHg TR Peak Gr.: 41.17 mmHg RVSP: 46.00 mmHg PA Pressure: 46.00 mmHg Left Ventricle The left ventricle is normal size. There is normal LV segmental wall motion. There is normal left ventricular wall thickness. Left ventricular systolic function is mildly decreased. The left ventricular ejection fraction is within the normal range. LVEF is 45-50%. Grade IV - fixed restrictive diastolic dysfunction. Right Ventricle The right ventricle is normal size. The right ventricular systolic function is normal. Atria Left atrium is mildly dilated. The right atrium size is normal. Aortic Valve The aortic valve is normal in structure. No aortic regurgitation is present. There is no aortic valvular stenosis. Mitral Valve The mitral valve is normal in structure. Trace mitral regurgitation. No evidence of mitral valve stenosis. Tricuspid Valve The tricuspid valve is normal in structure. Trace tricuspid regurgitation. Moderate [place] [address] 2 D/M-MODE ECHOCARDIOGRAM Name: CAMELIA FAITH Room: [address] IN ..#: [id number] Admission: 02/03/21 Attend Phys: Coy Carranza, Discharge: Date of : 70 Date of Service: 02/03/21 1605 Report #: [id number] Pulmonic Valve The pulmonary valve is normal in structure. There is no pulmonic valvular regurgitation. Great Vessels The aortic root is normal in size. IVC is normal in size and collapses >50% with inspiration. Pericardium There is no pericardial effusion. <Conclusion> Grade IV - fixed restrictive diastolic dysfunction. The aortic valve is normal in structure. No aortic regurgitation is present. There is no aortic valvular stenosis. Trace mitral regurgitation. Trace tricuspid regurgitation. Moderate pulmonary hypertension. There is normal left ventricular wall thickness. The left ventricle is normal size. There is normal LV segmental wall motion. LVEF is 45-50%. <ELECTRONICALLY SIGNED> By: Nita Guillen MD, FACC 02/03/21 1605 1605 1605 Nita Guillen MD, FACC /INF
[2021-02-03 21:06] LABS: COMPLEMENT-C4 6 mg/dL (12-38)
[2021-02-04] VITALS (19 sets, daily range): BP systolic 114–149; BP diastolic 65–91
[2021-02-04 03:19] LABS: ABSOLUTE LYMPHOCYTES 0.2 thou/uL (0.8-5.3); NUCLEATED RBCS 0 /100WBC
[2021-02-04 03:40] LABS: ABSOLUTE MONOCYTES 0.2 thou/uL (0.0-1.2); ABSOLUTE NEUTROPHILS 12.4 thou/uL (1.6-8.1); HEMATOCRIT 21.8 % (42.0-52.0); LYMPHOCYTES 1.7 %; MCH 22.6 pg (26.0-34.0); MCHC 30.9 g/dL (28.0-37.0); MCV 73.3 fL (80.0-100.0); MONOCYTES 1.5 %; MPV 6.7 fl. (7.2-11.1); POLYS 96.8 %; RBC 2.97 mil/uL (4.50-6.00); RDW-CV 19.2 % (10.5-14.5); WBC 12.8 thou/uL (4.0-11.0)
[2021-02-04 03:41] LABS: ALBUMIN 2.6 g/dL (3.4-5.0); CREATININE 3.6 mg/dL (0.6-1.3); MAGNESIUM 2.4 mg/dL (1.8-2.4); POTASSIUM 3.5 mmol/L (3.5-5.1); TOTAL BILIRUBIN 0.5 mg/dL (<0.1-1.0); TOTAL PROTEIN 5.9 g/dL (6.4-8.2)
[2021-02-04 06:00] LABS: HEMOGLOBIN 6.7 gm/dL (14.0-18.0); PLATELET COUNT* 268 thou/uL (150-400)
[2021-02-04 08:16] LABS: BE -5.6 mmol/L (-2 to +3); PCO2 23.7 mmHg (35.0-45.0); PO2 63.6 mmHg (75.0-100.0); pH 7.472 (7.340-7.450)
--- NOTE | 2021-02-04 08:59 | NUR ---
ICU Rounds: Patient currently on 3L NC. Continued abx. Pulm and ID consulted. Nursing requesting records for patient on pulm's behalf. 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 PCR still pending. Patient to stay through the weekend. CM to continue to follow for safe dc planning
--- NOTE | 2021-02-04 09:00 | NUR ---
PT VERY MAD ABOUT NOT GETTING HIS COFFEE WHICH HE ASKED SINCE 0400. HE SETTLED AFTER HE GOT HIS COFFEE AT 0800. BUT GOT MAD AGAIN AT BREAKFAST OVER COFFEE AND SAYS HE'S NOT HAPPY WITH THE SERVICE OVER HERE. HE WANTS TO LEAVE AMA. DR EAST, HOUSE SUP AND BICYCLE INSPECTOR AWARE. HE GOT AGITATED WITH AUGUSTO FROM PT EXPERIENCE, SECURITY HAD TO BE CALLED.
[2021-02-04 10:08] LABS: ANTI-DNA SCREEN 6 IU/mL (0-9); ANTI-RNP 0.2 AI (0.0-0.9); ANTI-SSA <0.2 AI (0.0-0.9); ANTIJO-I AB <0.2 AI (0.0-0.9)
--- NOTE | 2021-02-04 10:25 | CON ---
[address] [address] CONSULTATION Name: CAMELIA FAITH Ana Room: [address] IN M.R.#: [id number] Admission: 02/03/21 Attend Phys: Coy Carranza MD Discharge: Date of : 70 Report #: [id number] THIS REPORT FOR: cc: Norm Serrano Adam J DO Pervez, Adeel MD ~ DATE OF CONSULTATION: 02/03/2021 REQUESTING PHYSICIAN: Coy Carranza MD INDICATION FOR CONSULTATION: Pulmonary infiltrates and hemoptysis/shortness of breath. HISTORY OF PRESENT ILLNESS: This is a 50-year-old gentleman with extensive history of smoking in the past, but discontinued in 2015. Does use marijuana. Does not carry a previous diagnosis of COPD. The patient was admitted back in fall in this hospital. The patient at that time was found to be in acute renal failure. He had a renal biopsy performed, which shows vascular microangiopathic changes. His MLEY has twice tested positive, once negative. His ANCA was negative. His glomerular basement membrane antibody tested negative. I do not have an IRVIN level available. The patient appears to have been in renal failure since then and eventually had a fistula created; however, he has not been on dialysis. He says that he has been having shortness of breath primarily for the last 6 weeks. He has been evaluated by a noise tester. He was told that he had lung irritation from the same process that was affecting his kidneys. I do not have details available. The patient previously was not on supplemental oxygen. Yesterday, the patient had increasing shortness of breath. He also was coughing up blood and therefore came to the emergency room. He does not have chest pain. He has had some chills, but he says that he has been having these since last fall and there is no change. He does not report fever. He does report increasing swelling of lower extremities. REVIEW OF SYSTEMS: The patient answers to the negative for 12 questions for review of systems, except as mentioned above. He is reported to have been vaccinated for COVID-19. PAST MEDICAL HISTORY: Acute renal failure, now becoming chronic renal failure, developing in fall of last year. See discussion above. Echocardiogram performed last fall was unremarkable. Pulmonary infiltrates at least for the last 6 weeks. I do not have previous records available. Prednisone use for treatment of this process, duration not known. Previous history of lung nodule, hypertension, fistula creation, back and neck surgery, right leg wound. CURRENT MEDICATIONS: List in [facility] reviewed. [facility]. Also, [place] [address] CONSULTATION Name: CAMELIA FAITH Room: [address] IN M.R.#: [id number] Admission: 02/03/21 Attend Phys: Coy Carranza MD Discharge: Date of : 70 Report #: [id number] ALLERGIES: MORPHINE AND TAPE. SOCIAL HISTORY: Extensive history of smoking, but discontinued in 2016. Does use marijuana. IMMUNIZATION HISTORY: Reported to have been vaccinated for COVID-19. FAMILY HISTORY: No pertinent family history known at this time. PHYSICAL EXAMINATION: GENERAL: He is alert, awake and oriented. He does not appear to be in any distress at this time; however, he is tachycardic. VITAL SIGNS: Heart rate is around 110, blood pressure is elevated to 170/100. He is saturating 94%. He is on 5 liters oxygen by nasal cannula. He is afebrile at this time. HEENT: Head is normocephalic and atraumatic. Pupils are equal and reactive. There is no throat erythema. NECK: Does not show raised JVP asymmetry, mass or lymph nodes. CHEST: Symmetrical expansion on inspection and palpation. On auscultation, breath sounds are bilaterally equal. I do not hear any added sounds. HEART: Regular. There is no murmur. Tachycardia noted. ABDOMEN: Soft and nontender. EXTREMITIES: Lower extremities show 2-3+ edema bilaterally. There is no calf tenderness. SKIN: Dry and intact. NEUROLOGIC: Moves all extremities bilaterally equally and spontaneously with no focal deficit identified. LABORATORY DATA: The patient's chest x-ray, arterial blood gas and lab work in [facility] reviewed. ASSESSMENT/PLAN: 1. Acute hypoxemic respiratory failure. He likely has an autoimmune process, which is affecting both his kidneys as well as lungs. We will try to get previous records. Continue to titrate oxygen. 2. Pulmonary infiltrates. These were not present in last fall. It is not known to me how long these have been present now. Agree with using a broad spectrum antibiotic, pending further evaluation. Also, agree with ID consult. Considering he has had hemoptysis, this may or may not have an infectious etiology. I feel that it is unlikely that we are dealing with COVID. I will go ahead and repeat connective tissue markers. We will also check an IRVIN level, although obviously this does not give a definite diagnosis regarding whether sarcoidosis is present. Pending further evaluation, I will go ahead and increase [address] [address] CONSULTATION Name: CAMELIA FAITH Room: 003-[address] [facility] IN .R.#: [id number] Admission: 02/03/21 Attend Phys: Coy Carranza MD Discharge: Date of : 70 Report #: [id number] steroid dose further. We will also treat with nebulized bronchodilators and we will obtain a CT chest. 3. Fluid overload/chronic renal failure. See discussion above. He has received 1 dose of Lasix. He has had good diuresis with it. His potassium was only 3.4. Therefore, despite renal failure, I will go ahead and give him 40 of potassium. We will continue to follow electrolytes closely. I understand he does not want to see Dr. Arciniega, who may be the customer account coordinator on consult for us. Echocardiogram was performed today and is pending at this time. 4. Elevated D-dimer and pedal edema. Recommend obtaining venous Dopplers as well. 5. Metabolic acidosis. This is secondary to renal failure. Decided only to watch for now. Down the line, may need bicarb. 6. Hypertension. Defer management to primary service. 7. History of smoking. See discussion above. 8. History of marijuana use. The patient is critically ill at this time. Total time spent providing critical care to this patient today exceeds 40 minutes. <ELECTRONICALLY SIGNED> By: Jorge Luis Puentes MD 02/04/21 1025 1210 [id number] Puentes MD /nt
[2021-02-04 17:11] LABS: URINE BILIRUBIN NEGATIVE (Negative); URINE BLOOD NEGATIVE (Negative); URINE CLARITY CLEAR; URINE COLOR YELLOW; URINE GLUCOSE-RANDOM NEGATIVE (Negative); URINE KETONES NEGATIVE (Negative); URINE LEUKOCYTES-REFLEX NEGATIVE (Negative); URINE NITRITE-REFLEX NEGATIVE (Negative); URINE PROTEIN 2+ (Negative); URINE UROBILINOGEN 0.2 E.U./dl (0.2-1.0)
[2021-02-04 17:21] LABS: BACTERIA-REFLEX None Seen /HPF (None Seen); CASTS None Seen /LPF (None Seen); CRYSTALS None Seen /LPF (None Seen); MUCUS 0-3 Light strn/LPF (None Seen); SQUAMOUS 0-3 Few /LPF (0-3); URINE RBC 0-2 Rare /HPF (0-2); URINE WBC-REFLEX None Seen /HPF (0-5)
[2021-02-04 22:06] LABS: ANA INTERPRETATION Positive (())
== END 2021-02-04 18:00 | disposition short-term general hospital (02) | DRG 871 ==
LOC: M.ERS 01:48 → M.TBA-ER 04:19 → M.ICU 04:19
PROVIDERS: Emergency Medicine; Internal Medicine Critical Care Medicine; ADMIT Internal Medicine; ATTEND Internal Medicine
DX: A41.9 Sepsis, unspecified organism (principal); J96.01 Acute respiratory failure with hypoxia; J18.9 Pneumonia, unspecified organism; J81.0 Acute pulmonary edema; E87.2 Acidosis; N18.4 Chronic kidney disease, stage 4 (severe); R04.2 Hemoptysis; I13.0 Hypertensive heart and chronic kidney disease with heart failure and stage 1 through stage 4 chronic kidney disease, or unspecified chronic kidney disease; Z20.822 Contact with and (suspected) exposure to COVID-19; E87.70 Fluid overload, unspecified; I50.9 Heart failure, unspecified; D64.9 Anemia, unspecified; J44.9 Chronic obstructive pulmonary disease, unspecified; K08.89 Other specified disorders of teeth and supporting structures; Z88.6 Allergy status to analgesic agent; Z87.891 Personal history of nicotine dependence; Z79.82 Long term (current) use of aspirin; Z79.899 Other long term (current) drug therapy